=== PATIENT | male | born 1995 | race Caucasian/White ===

== ENCOUNTER 2018-06-08 19:45 | Emergency (ER) | payer MEDICAID ==
[~2018-06-08] VITALS: Ht 185.4 cm; Wt 63.5 kg
[2018-06-08] MEDS ORDERED: MEPERIDINE HCL (50 MG/ML) 1 ML VIAL IM ONE ×2 (21:45)
[2018-06-08] MEDS ORDERED: ONDANSETRON ODT 4 MG TAB PO ONE ×2 (21:45)
[2018-06-08] MEDS ORDERED: ONDANSETRON HCL 4 MG/2 ML VIAL ONE (21:59)
[2018-06-08 22:00] VITALS: BP 128/74
[2018-06-08] MEDS ORDERED: MEPERIDINE HCL (25 MG/ML) 1ML VIAL IV ONE (22:15)
== END 2018-06-08 22:30 | disposition home or self-care (01) ==
LOC: EDBD 19:45 → ER 19:53
DX: S00.83XA Contusion of other part of head, initial encounter (principal); M62.830 Muscle spasm of back; W18.39XA Other fall on same level, initial encounter; W22.8XXA Striking against or struck by other objects, initial encounter; Y93.89 Activity, other specified; Y99.8 Other external cause status; Y92.89 Other specified places as the place of occurrence of the external cause
CPT/HCPCS: 70450; 72040; 72100; 72125; 96374; 99284; J2175; J2405; Q0162